=== PATIENT | female | born 1985 | race African-American/Black ===

== ENCOUNTER 2016-11-03 12:53 | Emergency (ER) | payer MEDICAID ==
[~2016-11-03] VITALS: Ht 165.1 cm; Wt 104.0 kg
[~2016-11-03 12:53] MED LIST: ALBUTEROL INH
[2016-11-03 13:30] VITALS: BP 109/66
[2016-11-03] MEDS ORDERED: KETOROLAC 30MG/ML VIAL IV ONE (14:15)
== END 2016-11-03 16:08 | disposition home or self-care (01) ==
LOC: ER 14:50
DX: M25.512 Pain in left shoulder (principal); M54.2 Cervicalgia; J45.909 Unspecified asthma, uncomplicated; V43.52XA Car driver injured in collision with other type car in traffic accident, initial encounter; Y93.89 Activity, other specified; Y92.89 Other specified places as the place of occurrence of the external cause; Z88.0 Allergy status to penicillin; Z87.01 Personal history of pneumonia (recurrent); Z98.51 Tubal ligation status
CPT/HCPCS: 72040; 73030; 96374; 99284; J1885

== ENCOUNTER 2017-02-21 13:11 | Emergency (ER) | payer MEDICAID ==
[~2017-02-21] VITALS: Ht 165.1 cm; Wt 100.0 kg
[2017-02-21 13:20] VITALS: BP 140/88
== END 2017-02-21 20:00 | disposition left against medical advice (07) ==
LOC: ER 19:06
DX: M79.643 Pain in unspecified hand (principal); Z53.21 Procedure and treatment not carried out due to patient leaving prior to being seen by health care provider

== ENCOUNTER 2017-07-02 12:57 | Emergency (ER) | payer MEDICAID ==
[~2017-07-02] VITALS: Ht 165.1 cm; Wt 100.0 kg
[2017-07-02] MEDS ORDERED: PREDNISONE 20MG TABLET PO STA (13:17)
[2017-07-02] MEDS ORDERED: ALBUTEROL (0.083%) 2.5MG/3ML NEB HHN STA (13:17)
[2017-07-02] MEDS ORDERED: IPRATROPIUM BROMIDE (0.02%) 0.5MG/2.5ML NEB HHN STA (13:17)
[2017-07-02 14:55] VITALS: BP 135/63
[2017-07-02] MEDS ORDERED: IBUPROFEN 600MG TABLET PO ONE (16:15)
== END 2017-07-02 16:36 | disposition home or self-care (01) ==
LOC: ER 13:12
DX: J45.901 Unspecified asthma with (acute) exacerbation (principal); J06.9 Acute upper respiratory infection, unspecified; M79.1 Myalgia; M54.9 Dorsalgia, unspecified; Z88.0 Allergy status to penicillin
CPT/HCPCS: 71010; 94640; 99283; J7512; J7611